=== PATIENT | female | born 2005 | race Caucasian/White ===

== ENCOUNTER 2025-03-04 21:51 | Emergency (ER) | payer BC, SELFPAY ==
[2025-03-04 22:13] VITALS: BP 110/74; PULSE 110; RESP 20; TEMP 37.8; O2SAT 99; BMI 21.8
[2025-03-04 23:03] LABS: PCR FLU A POSITIVE PCR FLU A (Negative); PCR FLU B Negative PCR FLU B (Negative); PCR RSV Negative PCR RSV (Negative); SARS PCR* Negative SARS-CoV-2 (Negative)
--- NOTE | 2025-03-04 23:10 | ED_ITS ---
HPI - General Adult General Chief complaint: Cough Stated complaint: Flu symptoms Time Seen by Provider: 03/04/25 23:05 History of Present Illness HPI narrative: This 19-year-old female comes in reporting upper respiratory symptoms including cough, body aches and pains common congestion, and fever. These symptoms began yesterday morning. She arrives here with reassuring vital signs. Related Data Allergies Allergy/AdvReac Type Severity Reaction Status Date / Time No Known Drug Allergies Allergy Verified 03/04/25 22:15 Review of Systems Status of ROS: Reports: 10 or more systems reviewed and unremarkable except as noted in History and below Narrative: Constitutional: No weight gain or loss. Eyes: No discharge. No vision changes. HENT: She reports nasal congestion. Cardiovascular: No chest pain, no palpitations. Respiratory: No shortness of breath, no wheezes. She reports a cough. Gastrointestinal: No abdominal pain, no vomiting, no diarrhea. Genitourinary: No dysuria, no hematuria. Musculoskeletal: Normal range of motion. Skin: No rashes, no pruritis. Neurological: No dizziness, weakness, sensory change, speech change. Endo/Heme/Allergies: No bruising or bleeding. No polydipsia. Pysch: no suicidality, no anxiety, no insomnia. All other systems reviewed and are negative. Exam Narrative: Exam Narrative: Constitutional: Well-developed, well-nourished, no acute distress. HEENT: Normocephalic, atraumatic. Neck: Normal range of motion. Nontender. Supple. Heart: Regular. No murmurs. Normal rate. Intact distal pulses. Lungs: Clear to auscultation. No chest discomfort. No wheezes, rhonchi, or rales. Abdomen: Normal bowel sounds. Nontender. No rebound tenderness. Genitalia: Deferred. Back: No midline tenderness. Normal range of motion. Extremities: Normal range of motion. No injury. Skin: Intact. No rash. Warm. No erythema or pallor. Neurologic: No altered sensation. No weakness. Alert and oriented. Psychiatric: No suicidality. No anxiety or depression. No insomnia. Nursing notes and vitals signs are reviewed. Const: Vital Signs, click to edit/add: Vital Signs - 24 hr 03/04/25 22:13 Temperature 100.0 F H Pulse Rate [Right Pulse Oximeter] 110 H Respiratory Rate 20 Blood Pressure [Ri ght Upper Arm] 110/74 Pulse Oximetry 99 Oxygen Delivery Me thod Room Air Course Vital Signs Vital signs: Initial Vital Signs Temperature 100.0 F H 03/04/25 22:13 Temperature Source Temporal Artery Scan 03/04/25 22:13 Pulse Rate 110 H 03/04/25 22:13 Respiratory Rate 20 03/04/25 22:13 Blood Pressure 110/74 03/04/25 22:13 Blood Pressure Mean 86 03/04/25 22:13 Blood Pressure Position Sitting 03/04/25 22:13 Pulse Oximetry 99 03/04/25 22:13 Oxygen Delivery Method Room Air 03/04/25 22:13 Vital Signs Temperature 100.0 F H 03/04/25 22:13 Pulse Rate 110 H 03/04/25 22:13 Respiratory Rate 20 03/04/25 22:13 Blood Pressure 110/74 03/04/25 22:13 Pulse Oximetry 99 03/04/25 22:13 Oxygen Delivery Method Room Air 03/04/25 22:13 Temperature 100.0 F H 03/04/25 22:13 Pulse Rate 110 H 03/04/25 22:13 Respiratory Rate 20 03/04/25 22:13 Blood Pressure 110/74 03/04/25 22:13 Pulse Oximetry 99 03/04/25 22:13 Oxygen Delivery Method Room Air 03/04/25 22:13 Medical Decision Making MDM Narrative Medical decision making narrative: This patient arrives with typical influenza symptoms. Her nasal pharyngeal swab does return positive for influenza A. She is a candidate for Tamiflu so a prescription was provided from [facility]. I did recommend also using hvsd-adu-lpaoivx medicines as needed and directed. Lab Data Labs: Lab Results 03/04/25 Range/Units 22:06 SARS-CoV-2 (PCR) Negative SARS-CoV-2 (Negative) Influenza Type A (PCR) POSITIVE PCR FLU A A (Negative) Influenza Type B (PCR) Negative PCR FLU B (Negative) RSV (PCR) Negative PCR RSV (Negative) Discharge Plan Discharge Clinical Impression: Influenza A Patient Disposition: Home, Self-Care Condition: Unchanged Additional Instructions: Take Tamiflu medication as prescribed. Use aqxt-kcy-rhmwryf meds also as needed and directed. Follow up with MD return if worsening. Stand Alone Forms: [employer] Info Instructions
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
[2025-03-05 02:05] LABS: Strep A DNA Probe* NOT DETECTED (Not Detectd)
== END 2025-03-04 23:27 | disposition home or self-care (01) ==
LOC: ED 23:23
PROVIDERS: Emergency Provider Emergency Medicine Emergency Medical Services
DX: J10.1 Influenza due to other identified influenza virus with other respiratory manifestations (principal)
CPT/HCPCS: 87631; 87651; 99283; 99284